=== PATIENT | female | born 1990 | race Caucasian/White ===

== ENCOUNTER 2022-01-11 16:25 | Emergency (ER) | payer OTHER, SELFPAY ==
[2022-01-11 16:53] VITALS: BP 110/85; PULSE 119; RESP 16; TEMP 36.8; O2SAT 97
[2022-01-11 16:57] VITALS: PULSE 119
--- NOTE | 2022-01-11 17:08 | ED.GENADULT ---
HPI - General Adult General Chief complaint: Unspecified <Rosa M Post PA-C - Last Filed: 01/12/22 00:38> Stated complaint: meth use <Rosa M Post PA-C - Last Filed: 01/12/22 00:38> Time Seen by Provider: 01/11/22 16:56 <Rosa M Post PA-C - Last Filed: 01/12/22 00:38> Source: patient <AUGUSTA Acharya Last Filed: 01/12/22 00:38> Mode of arrival: EMS <AUGUSTA Acharya Last Filed: 01/12/22 00:38> Limitations: no limitations <Rosa M Post PA-C - Last Filed: 01/12/22 00:38> History of Present Illness HPI narrative: Patient is a 31-year-old female who presents to the ED via EMS with report of depression. Patient reports she has several mental health issues that stem from previous traumas in her life. She has not been taking medications for her mental health issues in the past year. She states she has been feeling depressed lately and does not want to do drugs anymore. She does admit to methamphetamine use today. She reports history of IV methamphetamine use, but states she has not used it in IV form in the past 6 months. She also admits to opiate use and attends a methadone clinic. She did receive her methadone dose today. She reports having intermittent thoughts of suicidal ideation in the past few days, but denied any SI today. She does not have any plan to carry through with harming herself at this time. Denies any HI. She has engaged in self-harm a few days ago which consisted of cutting her wrists bilaterally. No deep lacerations. Patient denies any fever, chills, chest pain, shortness of breath, nausea, vomiting. <Rosa M Post PA-C - Last Filed: 01/12/22 00:38> Related Data Home medications: Home Medications Medication Instructions Recorded Confirmed No Home Medications 01/11/22 <Rosa M Post PA-C - Last Filed: 01/12/22 00:38> Allergies/adverse reactions: Allergies Allergy/AdvReac Type Severity Reaction Status Date / Time No Known Allergies Allergy Mild Verified 01/11/22 16:52 <Rosa M Post PA-C - Last Filed: 01/12/22 00:38> Review of Systems Review of Systems: CONSTITUTIONAL: Denies fever, chills, or sweats. CARDIOVASCULAR: Denies chest pain. RESPIRATORY: Denies dyspnea. GASTROINTESTINAL: Denies abdominal pain, nausea, vomiting. PSYCHIATRIC: Reports depression, intermittent SI. Denies anxiety or HI. <Rosa M Post PA-C - Last Filed: 01/12/22 00:38> All systems reviewed & are unremarkable except as noted in HPI and below <Rosa M Post PA-C - Last Filed: 01/12/22 00:38> [facility] Past Medical History Medical History: Medical History (Updated 01/13/22 @ 00:00 by Abdirashid Walter) Anxiety Depression <Rosa M Post PA-C - Last Filed: 01/12/22 00:38> Surgical History Surgical History: Surgical History (Updated 01/12/22 @ 00:32 by Rosa M Post PA-C) History of tonsillectomy <Rosa M Post PA-C - Last Filed: 01/12/22 00:38> Social History Social History: Social History (Updated 01/11/22 @ 17:13 by Rosa M Post PA-C) Substance use type: amphetamines and opiates <Rosa M Post PA-C - Last Filed: 01/12/22 00:38> Exam Narrative: GENERAL: Disheveled, well-nourished, non-toxic, in no acute distress. HEAD: Normocephalic, atraumatic. EYES: EOMI, conjunctivae clear bilaterally. NOSE: Normal, no drainage NECK: Supple. No adenopathy, no masses. RESPIRATORY: Airway patent, tachypneic. Clear to auscultation bilaterally, no rales, rhonchi, wheezing. CARDIOVASCULAR: Tachycardic with regular rhythm without murmurs, rubs, or gallops. Peripheral pulses 2+ and equal bilaterally. ABDOMINAL: Soft, nontender, nondistended, no hepatosplenomegaly. Normoactive BS. MUSCULOSKELETAL: Moves all extremities. Strength/ROM intact without gross deformities or TTP. SKIN: Warm, dry, normal color. No rashes. Superficial horizontal scratches to bilateral wrists, left greater than right. No active bleeding. N
--- NOTE | 2022-01-11 17:38 | PC.NURSE ---
pt visualized walking out of EMS bay with steady gait and in no acute distress.
[2022-01-11 17:42] LABS: Add Urine Microscopic? YES; Appearance Urine Cloudy (Clear); Bilirubin Urine Negative (Negative); Blood Urine 1+ (Negative); Calcium Oxalate Crystals Urine Present /hpf; Color Urine Yellow (Yellow); Glucose Urine UA Negative (Negative); Ketones Urine Negative (Negative); Leukocyte Esterase Ur 1+ LEU/UL (Negative); Mucus Urine Few /lpf; Nitrate Urine Negative (Negative); Protein Urine 2+ mg/dL (Negative); Specific Grav Ur 1.018 (1.001-1.035); Squamous Epithelial Cell Urine Moderate /hpf (Few)
--- NOTE | 2022-01-11 17:50 | PC.NURSE ---
pt not in room, pt was seen leaving the dept and in no distress. charge nurse aware, Provider made aware
[2022-01-11 17:58] LABS: Barbiturate Screen Urine Negative (Negative); Benzodiazepines Screen Urine Negative (Negative)
[2022-01-11 18:01] LABS: Cannabinoid Screen Urine Positive (Negative); Cocaine Screen Urine Negative (Negative); Methadone Screen Urine Positive (Negative); Opiate Screen Urine Negative (Negative); Phencyclidine Screen Urine Negative (Negative)
[2022-01-11 19:02] LABS: Amphetamine Screen Urine Positive (Negative)
== END 2022-01-11 17:50 | disposition left against medical advice (07) ==
PROVIDERS: Physician Assistant; Emergency Provider Emergency Medicine
DX: F32.9 Major depressive disorder, single episode, unspecified (principal); F19.10 Other psychoactive substance abuse, uncomplicated; F41.9 Anxiety disorder, unspecified
CPT/HCPCS: 80307; 81001; 99283

== ENCOUNTER 2022-10-04 10:33 | Emergency (ER) | payer OTHER, SELFPAY ==
[2022-10-04 11:18] VITALS: BP 137/85; PULSE 91; RESP 14; TEMP 36.3; O2SAT 98
--- NOTE | 2022-10-04 13:21 | ED.SKABFB ---
HPI - Skin/Abscess/Foreign Bdy General Chief complaint: Skin/Abscess/Foreign Body Stated complaint: abscess on left arm Time Seen by Provider: 10/04/22 12:34 History of Present Illness HPI narrative: Female history of IV drug use presents to the emergency room with a painful lump to her left bicep. Patient states that she recently attempted to use her left antecubital vein to shoot methamphetamine. Reportedly had cellulitis in her left hand a month ago and was on Bactrim. Related Data Allergies Allergy/AdvReac Type Severity Reaction Status Date / Time No Known Allergies Allergy Mild Verified 10/04/22 12:32 Review of Systems Review of Systems: CONSTITUTIONAL: Denies fever, chills, or sweats. EYES: Denies visual changes, redness, or discharge. ENT: Denies rhinorrhea, congestion, sore throat, or otalgia. CARDIOVASCULAR: Denies chest pain, palpitations, or edema. RESPIRATORY: Denies cough or dyspnea. GASTROINTESTINAL: Denies abdominal pain, nausea, vomiting, or diarrhea. GENITOURINARY: Denies dysuria or hematuria. SKIN: Reports painful mass to left bicep MUSCULOSKELETAL: Denies back pain, joint pain, or myalgia. NEUROLOGIC: Denies headache, numbness, dizziness, or weakness. PSYCHIATRIC: Denies anxiety or depression. [facility] Past Medical History Medical History Anxiety Depression Surgical History Surgical History History of tonsillectomy Social History Social History Substance use type: amphetamines and opiates Exam Narrative: GENERAL: Well-appearing, well-nourished, no physical limitations, and in no acute distress. HEAD: Normocephalic, atraumatic. EYES: Conjunctivae normal, PERRLA and EOMI. CHEST: Clear to auscultation. No respiratory distress. No wheezes rales or rhonchi. HEART: Regular rate and rhythm. No murmur heard. Normal peripheral pulses. EXTREMITIES: Normal range of motion. No edema. No clubbing or cyanosis SKIN: 3 cm indurated subcutaneous mass with surrounding erythema and tenderness warmth. No signs of lymphangitic spread NEURO: No focal deficits. Alert and oriented x3. MAEW. CN's II-XI intact bilaterally, normal gait PSYCH: Cooperative. Normal mood and affect. Course Vital Signs Vital signs: Vital Signs Temperature 36.3 C L 10/04/22 11:18 Pulse Rate 91 10/04/22 11:18 Respiratory Rate 14 10/04/22 11:18 Blood Pressure 137/85 10/04/22 11:18 Pulse Oximetry 98 10/04/22 11:18 Oxygen Delivery Room Air 10/04/22 11:18 Temperature 36.3 C L 10/04/22 11:18 Pulse Rate 91 10/04/22 11:18 Respiratory Rate 14 10/04/22 11:18 Blood Pressure 137/85 10/04/22 11:18 Pulse Oximetry 98 10/04/22 11:18 Oxygen Delivery Room Air 10/04/22 11:18 Discharge Plan Discharge Clinical Impression: Cellulitis, Abscess of skin or subcutaneous tissue Patient Disposition: Home, Self-Care Condition: Stable Instructions: Antibiotic Form, Cellulitis (ED) Prescriptions: New clindamycin HCl 300 mg capsule 300 mg PO Q8H 7 Days Qty: 21 0RF Follow-up/Referrals: PHYSICIAN,LIBRARY SERIALS ASSISTANT [Primary Care Provider] - Time of Disposition: 13:23
== END 2022-10-04 13:33 | disposition home or self-care (01) ==
PROVIDERS: Emergency Provider Nurse Practitioner Family
DX: L02.414 Cutaneous abscess of left upper limb (principal); L03.114 Cellulitis of left upper limb; F41.9 Anxiety disorder, unspecified; F32.9 Major depressive disorder, single episode, unspecified
CPT/HCPCS: 99283

== ENCOUNTER 2023-01-25 10:56 | Emergency (ER) | payer OTHER, SELFPAY ==
[2023-01-25 11:23] VITALS: BP 133/75; PULSE 105; RESP 18; TEMP 36.9; O2SAT 100
--- NOTE | 2023-01-25 12:03 | PC.NURSE ---
multiple attempts at blood draw without success.
[2023-01-25 12:29] LABS: Appearance Urine Cloudy (Clear); Bacteria Urine 1+ /hpf; Bilirubin Urine 1+ (Negative); Blood Urine Negative (Negative); Color Urine Dark Yellow (Yellow); Glucose Urine UA Negative (Negative); Ketones Urine Trace mg/dL (Negative); Leukocyte Esterase Ur Negative LEU/UL (Negative); Mucus Urine Present /lpf; Nitrate Urine Negative (Negative); Protein Urine 1+ mg/dL (Negative); RBC Urine 21-50 /hpf (0-2); Specific Grav Ur 1.025 (1.001-1.035); Squamous Epithelial Cell Urine Many /hpf (Few); WBC Urine 0-5 /hpf; pH Urine 5.5 (5.0-9.0)
[2023-01-25 12:42] LABS: Add Urine Microscopic? YES
--- NOTE | 2023-01-25 13:33 | PC.NURSE ---
RN calls pt's name to take back to exam room. No answer. By stander in waiting room states that she saw a woman leave an hour ago and has not seen her since.
== END 2023-01-25 16:04 | disposition left against medical advice (07) ==
PROVIDERS: Emergency Provider Emergency Medicine
DX: R10.9 Unspecified abdominal pain (principal)
CPT/HCPCS: 81001; 81025; 99199

== ENCOUNTER 2023-03-02 19:00 | Emergency (ER) | payer OTHER, SELFPAY ==
--- NOTE | ~2023-03-02 | XR_ITS ---
EXAMINATION: XR chest 1V portable 03/02/2023 23:13 INDICATION: Dyspnea PROCEDURE: AP portable chest COMPARISON: 07/10/2014 FINDINGS: The lungs are clear. The cardiomediastinal silhouette is within normal limits. There are no pleural effusions. There is no pneumothorax suspected. IMPRESSION: 1: NO ACUTE CARDIOPULMONARY DISEASE. Reviewed, dictated and finalized at location A.
--- NOTE | ~2023-03-02 | CT_ITS ---
EXAMINATION: CT chest abdomen pelvis w con DATE: 03/03/2023 08:18 CDT INDICATION: Dyspnea. Lower extremity edema. History of IV drug abuse. TECHNIQUE: Computed tomography (CT) of the chest, abdomen, and pelvis was performed with 100 cc Omnip aque 350 intravenous contrast. The dose-length product was 1344.80 mGy-cm. Automated exposure control and iterative reconstruction technique were employed. COMPARISON: CT dated 05/08/2014 FINDINGS: CHEST CT: No thoracic lymphadenopathy. Small hiatal hernia with mild thickening of the distal esophagus. No sig nificant pleural or pericardial effusion. Heart size normal. No focal airspace consolidation. No susp icious pulmonary nodules or masses. No endobronchial lesions. No pneumothorax. No acute osseous abnor mality. ABDOMEN/PELVIS CT: The liver, spleen, pancreas, adrenal glands and kidneys are unremarkable. Small fat-containing umbili swapnil hernia. Nonobstructive bowel pattern. No abnormal pelvic masses or fluid collections. No hydronep hrosis. No free air or free fluid. IMPRESSION: 1. No acute abnormality of the chest, abdomen or pelvis. Reviewed, dictated and finalized at location A.
[2023-03-02 19:06] VITALS: BP 161/95; PULSE 111; RESP 16; TEMP 37; O2SAT 98
--- NOTE | 2023-03-02 23:00 | ECG_ITS ---
Measurements Intervals [place] Rate: 79 P: 22 RI: 162 QRS: 32 QRSD: 72 T: 9 QT: 365 QTc: 420 Interpretive Statements SINUS RHYTHM NONSPECIFIC T-WAVE ABNORMALITY- INFERIOR LEADS BASELINE ARTIFACT- I, II, III, AVR, AVL, AVF, V2 BORDERLINE ECG NO PREVIOUS ECG AVAILABLE FOR COMPARISON Electronically Signed On 03-03-2023 6:13:30 CDT by Elvin Wei D.O.
[2023-03-02 23:17] LABS: Glucose Point of Care 82 mg/dl (65-105)
[2023-03-02 23:41] LABS: Appearance Urine Cloudy (Clear); Bacteria Urine Rare /hpf; Bilirubin Urine Negative (Negative); Blood Urine Negative (Negative); Color Urine Dark Yellow (Yellow); Glucose Urine UA Negative (Negative); Ketones Urine Negative (Negative); Leukocyte Esterase Ur Negative LEU/UL (Negative); Mucus Urine Present /lpf; Nitrate Urine Negative (Negative); Protein Urine Trace mg/dL (Negative); Specific Grav Ur 1.036 (1.001-1.035); Squamous Epithelial Cell Urine Few /hpf (Few); WBC Urine 0-5 /hpf; pH Urine 5.5 (5.0-9.0)
[2023-03-02 23:42] LABS: Add Urine Microscopic? YES
[2023-03-02 23:46] VITALS: PULSE 87; O2SAT 100
[2023-03-02 23:47] VITALS: BP 136/85; PULSE 79; RESP 17; O2SAT 100
--- NOTE | 2023-03-02 23:49 | ED.GENADULT ---
HPI - General Adult General Chief complaint: Extremity Problem,Nontraumatic Stated complaint: abd pain/leg swelling Time Seen by Provider: 03/02/23 22:09 History of Present Illness HPI narrative: Is a 33-year-old IV drug user presenting to ED with multiple complaints. Patient states that over the last several days she has had some swelling of her lower extremities. It varies throughout the day but tends to be worse at night. She has also been having achy crampy abdominal pain. it is located diffusely throughout her abdomen, 5 out 10 intensity and comes and goes. She has never had pain like this before there are no exacerbating or alleviating factors. The patient denies fevers chills night sweats or chest pain. She does note that she feels like she is short of breath when she walks which has been going on for months. Patient denies risk factors for DVT /PE. Related Data Allergies Allergy/AdvReac Type Severity Reaction Status Date / Time No Known Allergies Allergy Mild Verified 10/04/22 12:32 [facility] Past Medical History Medical History Anxiety Depression IV drug abuse Surgical History Surgical History History of tonsillectomy Social History Social History Substance use type: amphetamines and opiates Exam Narrative: APPEARANCE: No apparent distress. Head: atraumatic. EYES: EOMI, NOSE: Atraumatic NECK: Trachea midline RESPIRATORY: No increased rate of breathing , clear to auscultation CARDIOVASCULAR: RRR, no murmurs, mild nonpitting edema of the lower extremities ABDOMINAL: obese, soft nontender no guarding or rebound MUSCULOSKELETAl: No obvious deformities NEURO: Alert. Moving 4/4 extremities SKIN:: Warm, dry. Normal color PSYCHIATRIC: Normal affect Course Vital Signs Vital signs: Vital Signs Temperature 98.6 F 03/02/23 19:06 Pulse Rate 111 H 03/02/23 19:06 Respiratory Rate 16 03/02/23 19:06 Blood Pressure 161/95 H 03/02/23 19:06 Pulse Oximetry 98 03/02/23 19:06 Oxygen Delivery Room Air 03/02/23 19:06 Temperature 98.6 F 03/02/23 19:06 Pulse Rate 99 03/03/23 02:00 Respiratory Rate 18 03/03/23 02:00 Blood Pressure 128/88 03/03/23 02:00 Pulse Oximetry 96 03/03/23 02:00 Oxygen Delivery Room Air 03/02/23 19:06 Medical Decision Making [facility] Narrative Medical decision making narrative: -Presentation: 33-year-old IV drug user presenting with multiple complaints including abdominal discomfort and lower extremity edema. Patient has also had subjective dyspnea over the last several months. Although here she is not tachypneic and saturating 98% on room air. full sepsis workup has been ordered including blood cultures. CT chest abdomen pelvis been ordered to evaluate for complications of IV drug use. -DDX includes but is not limited to: infective endocarditis, sepsis, constipation of opiate use, new onset heart failure ammonia -Co-morbidities complicating care: IV drug abuse, anxiety depression schizophrenia/bipolar disorder -Social determinants of health: patient is unemployed lives with her boyfrie -External Chart Review: review of previous ER visits -Hx from independent Sources: none -Discussion of Management/Consultants: none -Independent interpretation of studies: CBC was 5.3. Metabolic panel unremarkable. Troponins were negative x2. BNP was undetectable. Patient has elevations in her CRP and ESR. These are nonspecific. Blood cultures are pending. Urine was not indicative of infection. Viral swabs were negative Drug screen was positive for methadone and cannabinoids. Amphetamines were indeterminate. chest x-ray was normal with no evidence of cardiomegaly or pulmonary vascular congestion. CT chest abdomen pelvis was normal he did not reveal a cause of the patient's symptoms. Dx tests considered but not ordered:
[2023-03-02 23:51] LABS: Basophils Percent Auto 0.8 % (0.2-1.2); Eosinophils Absolute Auto 0.2 K/mm3 (0-0.3); Eosinophils Percent Auto 4.5 % (0-4.4); Hematocrit 40.9 % (37.0-47.0); Hemoglobin 13.3 g/dL (12.0-15.0); Immature Granulocyte Absolute 0.01 K/mm3 (0.00-0.031); Immature Granulocyte Percent A 0.2 % (0-0.5); Lymphocytes Percent Auto 43.2 % (18.3-44.2); Mean Corpuscular HGB Conc 32.5 g/dl (32-36); Mean Corpuscular Hemoglobin 30.9 pg (26-34); Mean Corpuscular Volume 94.9 fl (80-100); Mean Platelet Volume 9.5 fl (7.4-10.4); Monocytes Absolute Auto 0.4 K/mm3 (0.1-0.6); Monocytes Percent Auto 7.7 % (2.6-8.5); Neutrophils Absolute Auto 2.3 K/mm3 (1.3-6.7); Neutrophils Percent Auto 43.6 % (45.5-73.1); Platelet Count Result 258 k/mm3 (150-375); Red Blood Count 4.31 M/mm3 (4.2-5.4); Red Cell Distribution Width 12.4 % (11.5-14.5); White Blood Count 5.3 K/mm3 (4.5-10.0)
[2023-03-03] VITALS (12 sets, daily range): BP systolic 118–128; BP diastolic 74–88; PULSE 73–99; RESP 13–20; O2SAT 96–100
[2023-03-03 00:02] LABS: INR 0.9; Prothrombin Time 12.7 Seconds (11.1-14.7)
[2023-03-03 00:03] LABS: Partial Thromboplastin Time 28.3 SECONDS (22.3-36.8)
[2023-03-03 00:04] LABS: Influenza A QL RT-PCR Negative (Negative); Influenza B QL RT-PCR Negative (Negative); RSV RNA, RT-PCR Negative (Negative); SARS-CoV-2 RNA PCR Negative (Negative)
[2023-03-03 00:07] LABS: Ethanol < 10 mg/dL (<10)
[2023-03-03 00:08] LABS: Lactic Acid Reflex 1.1 mmol/L (0.7-2.0)
[2023-03-03 00:09] LABS: Alanine Aminotransferase 35 U/L (6-35); Albumin Level 4.7 g/dL (3.5-5.1); Alkaline Phosphatase 145 U/L (38-126); Anion Gap 4 mmol/L (8-16); Aspartate Amino Transferase 27 U/L (14-36); Bilirubin,Total 0.4 mg/dL (0.2-1.3); Blood Urea Nitrogen 9 mg/dL (7-17); Carbon Dioxide 34 mmol/L (22-30); Chloride 102 mmol/L (98-107); Estimated CRCL calculation 139 ml/min; Estimated Glomerular Filt Rate > 60; Glucose 72 mg/dL (65-110); Lipase 72 U/L (23-300); Magnesium 2.4 mg/dL (1.6-2.3); Phosphorus 3.7 mg/dL (2.5-4.5); Potassium 3.6 mmol/L (3.4-5.0); Sodium 140 mmol/L (137-145)
[2023-03-03 00:12] LABS: CRP 3.3 mg/dL (<1.0)
[2023-03-03 00:17] LABS: NT Pro B Type Natriuretic Pept < 20 pg/mL (19.9-100)
[2023-03-03 00:18] LABS: NT Pro B Type Natriuretic Pept < 20 pg/mL (19.9-100)
[2023-03-03 00:19] LABS: Methadone Screen Urine Positive (Negative); Opiate Screen Urine Negative (Negative); Phencyclidine Screen Urine Negative (Negative)
[2023-03-03 00:20] LABS: Troponin I < 0.012 ng/mL (0.000-0.034)
[2023-03-03 00:24] LABS: Erythrocyte Sedimentation Rate 39 mm/hr (0-20)
[2023-03-03 00:29] LABS: Benzodiazepines Screen Urine Negative (Negative)
[2023-03-03 00:30] LABS: Cannabinoid Screen Urine Positive (Negative); Cocaine Screen Urine Negative (Negative)
[2023-03-03 01:01] LABS: Barbiturate Screen Urine Negative (Negative)
[2023-03-03] MEDS: SODIUM CHLORIDE 0.9% IV 2,000 ML 999 ML IV CONT (02:31)
[2023-03-03 04:05] LABS: Troponin I < 0.012 ng/mL (0.000-0.034)
== END 2023-03-03 04:28 | disposition home or self-care (01) ==
PROVIDERS: Emergency Provider Emergency Medicine
DX: R60.0 Localized edema (principal); R06.00 Dyspnea, unspecified; R10.9 Unspecified abdominal pain; F31.9 Bipolar disorder, unspecified; F15.10 Other stimulant abuse, uncomplicated; F11.10 Opioid abuse, uncomplicated; Z20.822 Contact with and (suspected) exposure to COVID-19; R94.31 Abnormal electrocardiogram [ECG] [EKG]
CPT/HCPCS: 36415; 71045; 71260; 74177; 80053; 80307; 81001; 81025; 82948; 83605; 83690; 83735; 83880; 84100; 84484; 85025; 85610; 85652; 85730; 86140; 87040; 87637; 93005; 96360; 96361; 99284; J7030; Q9967

== ENCOUNTER 2023-05-07 10:49 | Observation (INO) | payer OTHER, SELFPAY ==
--- NOTE | ~2023-05-07 | US_ITS ---
EXAMINATION: US venous doppler LE RT DATE: 05/07/2023 14:24 INDICATION: Pain swelling and redness in the leg. TECHNIQUE: Grayscale images without and with compression and Doppler images of the right lower extrem ity veins were obtained. COMPARISON: None FINDINGS: The right common femoral vein, profunda (deep) femoral vein, femoral vein, popliteal vein, peroneal v ein, posterior tibial veins, gastrocnemius vein, and greater saphenous vein are patent. Incidental no te of an enlarged lymph node in the right upper thigh. IMPRESSION: 1. Patent right lower extremity veins. No evidence of deep venous thrombosis. 2. Lower extremity lymphadenopathy. Reviewed, dictated and finalized at location K.
--- NOTE | ~2023-05-07 | XR_ITS ---
XR foot RT min 3V DATE: 05/07/2023 11:44 INDICATION: Pain, redness, swelling at the base of the first toe and first metatarsal area TECHNIQUE: 4 views COMPARISON: None FINDINGS: There is soft tissue swelling of the distal dorsal aspect of the foot on lateral view. No f racture or dislocation, periosteal reaction or bone destruction is detected. Joint spaces are preserv ed. No erosive changes. IMPRESSION: Distal dorsal soft tissue swelling of the foot; no bony abnormality Reviewed, dictated and finalized at location B.
[2023-05-07 10:52] VITALS: BP 135/91; PULSE 140; RESP 20; TEMP 36.6; O2SAT 95
[2023-05-07 11:46] LABS: Basophils Percent Auto 0.4 % (0.2-1.2); Eosinophils Absolute Auto 0.1 K/mm3 (0-0.3); Eosinophils Percent Auto 1.1 % (0-4.4); Hematocrit 40.6 % (37.0-47.0); Hemoglobin 13.2 g/dL (12.0-15.0); Immature Granulocyte Absolute 0.02 K/mm3 (0.00-0.031); Immature Granulocyte Percent A 0.2 % (0-0.5); Lymphocytes Absolute Auto 1.76 K/mm3 (0.9-3.2); Lymphocytes Percent Auto 21.7 % (18.3-44.2); Mean Corpuscular HGB Conc 32.5 g/dl (32-36); Mean Corpuscular Hemoglobin 30.5 pg (26-34); Mean Corpuscular Volume 93.8 fl (80-100); Mean Platelet Volume 9.8 fl (7.4-10.4); Monocytes Absolute Auto 0.3 K/mm3 (0.1-0.6); Monocytes Percent Auto 4.2 % (2.6-8.5); Neutrophils Absolute Auto 5.9 K/mm3 (1.3-6.7); Neutrophils Percent Auto 72.4 % (45.5-73.1); Platelet Count Result 285 k/mm3 (150-375); Red Blood Count 4.33 M/mm3 (4.2-5.4); Red Cell Distribution Width 12.3 % (11.5-14.5); White Blood Count 8.1 K/mm3 (4.5-10.0)
[2023-05-07 11:55] LABS: Alanine Aminotransferase 25 U/L (6-35); Albumin Level 4.5 g/dL (3.5-5.1); Alkaline Phosphatase 140 U/L (38-126); Anion Gap 8 mmol/L (8-16); Aspartate Amino Transferase 22 U/L (14-36); Bilirubin,Total 0.4 mg/dL (0.2-1.3); Blood Urea Nitrogen 10 mg/dL (7-17); CRP 5.1 mg/dL (<1.0); Calcium 9.1 mg/dL (8.4-10.2); Carbon Dioxide 28 mmol/L (22-30); Chloride 101 mmol/L (98-107); Estimated CRCL calculation 138 ml/min; Estimated Glomerular Filt Rate > 60; Glucose 163 mg/dL (65-110); Potassium 3.7 mmol/L (3.4-5.0); Sodium 137 mmol/L (137-145)
[2023-05-07 12:28] LABS: Erythrocyte Sedimentation Rate 35 mm/hr (0-20)
--- NOTE | 2023-05-07 14:00 | ED.WOUNDLAC ---
HPI - Wound/Laceration General Chief Complaint: Wound/Laceration <AUGUSTA King Last Filed: 05/07/23 18:41> Stated Complaint: right foot infection <AUGUSTA King Last Filed: 05/07/23 18:41> Time Seen by Provider: 05/07/23 12:58 <AUGUSTA King Last Filed: 05/07/23 18:41> Source: patient <AUGUSTA King Last Filed: 05/07/23 18:41> Mode of arrival: ambulatory <AUGUSTA King Last Filed: 05/07/23 18:41> Limitations: no limitations <AUGUSTA King Last Filed: 05/07/23 18:41> History of Present Illness HPI narrative: Patient is a 33-year-old female, with past medical history of polysubstance abuse, IVDA, HepC, who presents the ED with report of an infection to her right foot. Patient reports she injected methamphetamines into a vein on the top of her right foot last Sunday. She began noticing redness, swelling, pain to her right foot afterwards, worse around her 1st toe. Symptoms have continued to worsen. Patient denies any fevers, nausea, vomiting. Denies any numbness or tingling. Patient receives Methadone at [facility] in [place], [place] daily. <AUGUSTA King Last Filed: 05/07/23 18:41> Related Data Home Medications: Home Medications Medication Instructions Recorded Confirmed olanzapine 10 mg tablet 10 mg PO BID 05/07/23 05/07/23 valacyclovir 1 gram tablet 1 mg PO DAILY 05/07/23 05/07/23 <AUGUSTA King Last Filed: 05/07/23 18:41> Allergies/Adverse Reactions: Allergies Allergy/AdvReac Type Severity Reaction Status Date / Time No Known Allergies Allergy Mild Verified 05/07/23 11:13 <UAGUSTA King Last Filed: 05/07/23 18:41> Review of Systems Review of Systems: CONSTITUTIONAL: Denies fever, chills, or sweats. SKIN: See HPI. MUSCULOSKELETAL: See HPI. NEUROLOGIC: Denies tingling, numbness, or weakness. <Rosa M Lake PA-C - Last Filed: 05/07/23 18:41> All systems reviewed & are unremarkable except as noted in HPI and below <Rosa M Lake PA-C - Last Filed: 05/07/23 18:41> [facility] Past Medical History Medical History: Medical History Anxiety Depression Hepatitis C IV drug abuse Migraine Schizophrenia Seizure No seizure since 2019. Suicide attempt <Rosa M Lake PA-C - Last Filed: 05/07/23 18:41> Surgical History Surgical History: Surgical History History of tonsillectomy <Rosa M Lake PA-C - Last Filed: 05/07/23 18:41> Family History Family History: Family History (Updated 05/07/23 @ 18:17 by Kenyatta Shah PA-C) Other Family history non-contributory <Rosa M Lake PA-C - Last Filed: 05/07/23 18:41> Social History Social History: Social History (Updated 05/07/23 @ 23:51 by Kenyatta Shah PA-C) Social History: Surrogate medical decision maker: Behzad Silva, father. Code status: Full code. Smoking packs per day: 0.5 Smoking cigarettes per day: 10.0 Years smoked: 15 Smoking pack-years: 7.50 Smoking status: Current every day smoker Tobacco type: cigarettes Second hand tobacco smoke exposure: Yes Alcohol intake: never Substance use: current Substance use type: amphetamines and opiates Other substance usage details: On methadone for history of opiate abuse. Lack of Transportation: YES Lack of Food: Often True Current Housing: I Have Housing Concerned About Future Housing: YES Difficulty Paying Gas/Electric Bills: YES Difficulty Paying for Meds: No Currently Unemployed: No Education: High School Diploma/GED Difficulty w/ Childcare or Family Care: No Spiritual care concerns: No <Rosa M Lake PA-C - Last Filed: 05/07/23 18:41> Exam Narrative: GENERAL:
[2023-05-07 14:36] VITALS: BP 108/70; PULSE 77; O2SAT 96
[2023-05-07 15:01] VITALS: BP 104/70; PULSE 76; RESP 16; O2SAT 98
[2023-05-07] MEDS: ceFAZolin 1 GM/NS 50 ML 1 GM/50 ML BAG IVPB ×2 (15:01→20:03)
[2023-05-07 16:01] VITALS: BP 108/60; PULSE 75; RESP 18; O2SAT 98
--- NOTE | 2023-05-07 16:06 | PC.NURSE ---
report called to SHAYY Garcia on , all questions answered. Awaiting call back to be notified when pt room 347 is done being cleaned
[2023-05-07 16:32] VITALS: BMI 35.9
[2023-05-07 16:38] VITALS: BP 138/75; PULSE 92; RESP 16; TEMP 36.9; O2SAT 97
--- NOTE | 2023-05-07 16:39 | PC.NURSE ---
This patient, Leisa Silva, was admitted to Medical Room 347-. Patient/family oriented to hospital policies and general routines including ID bracelet, bed and alarms, visiting hours, pain management, procedures, bathroom and other care routines, personal items, smoking policy, room service/diet, and visiting hours. Information on how to activate the Rapid Response Team has been discussed. Patient/Family are encouraged to report perceived risks to care and to ask questions if they do not understand what they are told or what they should do.
--- NOTE | 2023-05-07 16:48 | PC.NURSE ---
Assistant County Engineer called [facility] in [place] ([phone]) to obtain medical records. Voicemail left. Fax number is [phone].
--- NOTE | 2023-05-07 18:13 | PM.IMHP ---
H&P: HPI History of Present Illness Date/Time: 05/07/23 18:30 Chief Complaint: Right foot infection. Narrative: This is a 33-year-old female with history of IV drug abuse, migraine headaches, seizure, asthma, hepatitis-C, depression, anxiety, schizophrenia, and previous suicide attempt who presented to the emergency department via private vehicle with concerns for right foot infection. The patient provides the following history. She injected meth into a vein on top of right foot last Sunday and shortly thereafter she noticed pain, swelling, and redness at the site. Her symptoms have continued to worsen since that time. She denies fever, chills, sweats, nausea, and vomiting. She also denies numbness and paresthesias of the right foot. She has no known history of multiple drug-resistant organisms. She was started on cefazolin and vancomycin and she is being admitted in this setting for further antibiotics. Review of Systems Review of Systems: Twelve systems were reviewed and are negative except for as per HPI. [facility] Past Medical History Medical History Anxiety Depression Hepatitis C IV drug abuse Migraine Schizophrenia Seizure No seizure since 2019. Suicide attempt Surgical History Surgical History History of tonsillectomy Family History Family History (Updated 05/07/23 @ 18:17 by Kenyatta Shah PA-C) Other Family history non-contributory Social History Social History (Updated 05/07/23 @ 23:51 by Kenyatta Shah PA-C) Social History: Surrogate medical decision maker: Behzad Silva, father. Code status: Full code. Smoking packs per day: 0.5 Smoking cigarettes per day: 10.0 Years smoked: 15 Smoking pack-years: 7.50 Smoking status: Current every day smoker Tobacco type: cigarettes Second hand tobacco smoke exposure: Yes Alcohol intake: never Substance use: current Substance use type: amphetamines and opiates Other substance usage details: On methadone for history of opiate abuse. Lack of Transportation: YES Lack of Food: Often True Current Housing: I Have Housing Concerned About Future Housing: YES Difficulty Paying Gas/Electric Bills: YES Difficulty Paying for Meds: No Currently Unemployed: No Education: High School Diploma/GED Difficulty w/ Childcare or Family Care: No Spiritual care concerns: No Meds Home Medications and Allergies Home Medications Medication Instructions Recorded Confirmed Type olanzapine 10 mg tablet 10 mg PO BID 05/07/23 05/07/23 History valacyclovir 1 gram tablet 1 mg PO DAILY 05/07/23 05/07/23 History Allergies Allergy/AdvReac Type Severity Reaction Status Date / Time No Known Allergies Allergy Mild Verified 05/07/23 11:13 Vital Signs Vital Signs - 24 hr 05/07/23 10:52 05/07/23 14:36 05/07/23 15:01 Temperature 97.9 F Pulse Rate 140 H 77 76 Respiratory Rate 20 16 Blood Pressure 135/91 H 108/70 104/70 Pulse Oximetry 95 96 98 05/07/23 16:01 05/07/23 16:38 Temperature 98.4 F Pulse Rate 75 92 Respiratory Rate 18 16 Blood Pressure 108/60 138/75 Pulse Oximetry 98 97 Exam Narrative: General: Nontoxic-appearing female in the semi-Morris position in bed. She is somnolent but arousable. Weight: 101 kg. BMI: 35.9. HEENT: PERRL, EOMI. Sclera anicteric. Tacky mucous membranes. Neck: Supple. Respiratory: Lungs are clear to auscultation bilaterally. Cardiovascular: Regular rate and rhythm with S1-S2. Gastrointestinal: Abdomen is soft, nontender, and nondistended with positive bowel sounds. Skin: Warm and dry. Dorsum of the right foot is erythematous, edematous, and warm. Extremities: No cyanosis or clubbing. Edema of the foot as above. Radial and pedal pulses intact. Neurological: Alert. Cranial nerves 2-12 are grossly intact. No gross focal deficits to casual conve
[2023-05-07] MEDS: OLANZapine 5 MG TABLET 10 MG PO (20:03)
[2023-05-07 21:00] VITALS: BP 110/61; PULSE 80; RESP 18; TEMP 36.8; O2SAT 95
[2023-05-08] MEDS: ceFAZolin 1 GM/NS 50 ML 1 GM/50 ML BAG IVPB (04:31)
[2023-05-08 06:00] VITALS: BP 101/52; PULSE 62; RESP 18; TEMP 36.7; O2SAT 100
[2023-05-08 06:00] LABS: Hematocrit 39.5 % (37.0-47.0); Hemoglobin 12.5 g/dL (12.0-15.0); Mean Corpuscular HGB Conc 31.6 g/dl (32-36); Mean Corpuscular Hemoglobin 30.5 pg (26-34); Mean Corpuscular Volume 96.3 fl (80-100); Mean Platelet Volume 9.7 fl (7.4-10.4); Platelet Count Result 274 k/mm3 (150-375); Red Cell Distribution Width 12.4 % (11.5-14.5)
[2023-05-08 06:11] LABS: Anion Gap 8 mmol/L (8-16); Blood Urea Nitrogen 10 mg/dL (7-17); Calcium 8.6 mg/dL (8.4-10.2); Carbon Dioxide 27 mmol/L (22-30); Chloride 100 mmol/L (98-107); Estimated CRCL calculation 138 ml/min; Estimated Glomerular Filt Rate > 60; Glucose 144 mg/dL (65-110); Potassium 3.6 mmol/L (3.4-5.0); Sodium 135 mmol/L (137-145)
--- NOTE | 2023-05-08 09:45 | PC.NURSE ---
Patient actively screaming in room that she wants to leave. Surgical Appliances Salesperson informed patient of the risks to signing out against medical advice. Patient stated I do not give a shit, I want to leave now Surgical Appliances Salesperson called digital asset coordinator and informed her of the situation and patient's requests. Surgical Appliances Salesperson called Hospitalist Florina and informed him of the patient situation. Patient continued to yell and scream in her room while typewriter assembly and parts inspector was working on the paperwork for a work release and oral antibiotic to be sent to pharmacy for patient. Patient screaming I need to leave now . Surgical Appliances Salesperson updated patient that she is working on getting it printed now, but printer is malfunctioning. digital asset coordinator had wrote a paper work release form as printer is not working right now. Surgical Appliances Salesperson gave paper to patient and told her Hospitalist Florina will send oral antibiotic over to [facility]. Patient stated I need to leave now I am not waiting for other papers .
--- NOTE | 2023-05-08 09:53 | PC.NURSE ---
Assessment was not done on patient this morning and medications were not given as patient was screaming and yelling saying she wants to leave now.
--- NOTE | 2023-05-08 09:56 | PM.DS ---
DS: Admitting Diagnosis Discharge Date 05/08/23 Admitting Diagnosis Right lower extremity cellulitis DS: Discharge Diagnosis Discharge Diagnosis (1) Cellulitis of right foot: Code(s): L03.115 - Cellulitis of right lower limb Status: Acute (2) Schizophrenia: Code(s): F20.9 - Schizophrenia, unspecified Status: Acute (3) Hepatitis C: Code(s): B19.20 - Unspecified viral hepatitis C without hepatic coma Status: Acute (4) IV drug abuse: Code(s): F19.10 - Other psychoactive substance abuse, uncomplicated Status: Acute DS: Summary Hospital Course Hospital Course: This is a 33-year-old female with history of IV drug abuse, migraine headaches, seizure, asthma, hepatitis-C, depression, anxiety, schizophrenia, and previous suicide attempt who presented to the emergency department via private vehicle with concerns for right foot infection. The patient provides the following history. She injected meth into a vein on top of right foot last Sunday and shortly thereafter she noticed pain, swelling, and redness at the site. Her symptoms have continued to worsen since that time. She has no known history of multiple drug-resistant organisms. She was started on cefazolin and vancomycin . Patient left AMA this morning Time Spent with Patient Time attestation: Total time spent providing and/or coordinating discharge services: DS: Data Data Completed and Pending Labs on day of discharge: Labs from last 24 hours 05/08/23 05/07/23 05/07/23 05:38 11:37 11:36 WBC 7.0 8.1 RBC 4.10 L 4.33 Hgb 12.5 13.2 Hct 39.5 40.6 MCV 96.3 93.8 MCH 30.5 30.5 MCHC 31.6 L 32.5 RDW 12.4 12.3 Plt Count 274 285 MPV 9.7 9.8 Immature Gran % (Auto) 0.2 Neut % (Auto) 72.4 Lymph % (Auto) 21.7 [place] % (Auto) 4.2 Eos % (Auto) 1.1 Baso % (Auto) 0.4 Lymph # (Auto) 1.76 [place] # (Auto) 0.3 Eos # (Auto) 0.1 Baso # (Auto) 0.0 Abs Immat Gran (auto) 0.02 Absolute Neuts (auto) 5.9 Absolute Nucleated RBC 0.0 Nucleated RBC % 0.0 ESR 35 H Sodium 135 L 137 Potassium 3.6 3.7 Chloride 100 101 Carbon Dioxide 27 28 Anion Gap 8 8 BUN 10 10 Creatinine 0.60 L 0.60 L Estim Creat Clear Calc 138 138 Estimated GFR > 60 > 60 Glucose 144 H 163 H Lactic Acid 2.0 Calcium 8.6 9.1 Magnesium 2.0 Total Bilirubin 0.4 AST 22 ALT 25 Alkaline Phosphatase 140 H C-Reactive Protein 5.1 H Total Protein 8.0 Albumin 4.5 Preliminary micro results at discharge 05/07/23 11:36 Blood Culture - Preliminary Blood Discharge Plan Discharge Consulting providers: Samia,Rosa M Ricks Discharging Clinician: Arden Heaton Anticipated Discharge Date/Time: 05/08/23 09:55 Patient Disposition: Left Against Medical Advice Activity: no preference Diet: regular Patient Instructions: How to Stop Smoking (DC) Stand Alone Forms: Work/School Release IP Follow-up/Referrals: PHYSICIAN NOT ON STAFF,NONSTAFF [Primary Care Provider] - Discharge Medications: New sulfamethoxazole-trimethoprim [Bactrim DS] 800-160 mg tablet 1 tablet PO Q12H Qty: 14 0RF Continued valacyclovir 1 gram tablet 1 mg PO DAILY olanzapine 10 mg tablet 10 mg PO BID Date of admission: 05/07/23 14:56 Primary Care Provider: PHYSICIAN NOT ON STAFF,NONSTAFF Admitting Provider: Evangelist Barber Attending physician on admission: Arden Heaton Condition: Stable
== END 2023-05-08 09:30 | disposition left against medical advice (07) ==
LOC: ANHED 12:58 → ANH3MED 15:23
PROVIDERS: Physician Assistant; Admitting Provider Internal Medicine; Emergency Provider Physician Assistant; Visit Provider Hospitalist
DX: L03.115 Cellulitis of right lower limb (principal); F19.10 Other psychoactive substance abuse, uncomplicated; B19.20 Unspecified viral hepatitis C without hepatic coma; F32.A Depression, unspecified; F41.9 Anxiety disorder, unspecified; R59.0 Localized enlarged lymph nodes; G43.909 Migraine, unspecified, not intractable, without status migrainosus; F20.9 Schizophrenia, unspecified; F17.210 Nicotine dependence, cigarettes, uncomplicated; Z91.51 Personal history of suicidal behavior; Z79.899 Other long term (current) drug therapy
CPT/HCPCS: 36415; 73630; 80048; 80053; 83605; 83735; 85025; 85027; 85652; 86140; 87040; 93971; 96365; 96366; 96367; 99285; A9270; G0378; G0379; J0690; J3370